=== PATIENT | male | born 1955 | race American Indian/Alaskan Native ===

== ENCOUNTER 2021-11-26 06:45 | Observation (INO) | payer MEDICARE, OTHER ==
[2021-11-20 10:41] LABS: Hematocrit 32.4 % (35.5-45.6); Hemoglobin 11.3 gm/dl (11.8-15.2); Mean Corpuscular HGB Conc 35 % (32-34); Mean Corpuscular Volume 82 fl (84-94); Platelet Count 310 K/mm3 (140-440); Red Blood Count 3.95 M/mm3 (3.65-5.03); Red Cell Distribution Width 16.1 % (13.2-15.2)
[2021-11-20 10:59] LABS: Alanine Aminotransferase 13 units/L (7-56); Albumin 4.3 g/dL (3.9-5); BUN/Creatinine Ratio 14; Blood Urea Nitrogen 11 mg/dL (9-20); Calcium 9.6 mg/dL (8.4-10.2); Hemolysis Index 2
--- NOTE | 2021-11-20 11:08 | Anesthesia Consultation ---
Anesthesia Consult and Med Hx Date of service: 11/26/21 - Airway Anesthetic Teeth Evaluation: Good (Missing) ROM Head & Neck: Adequate Mental/Hyoid Distance: Adequate Mallampati Class: Class III (Small mouth opening) Intubation Access Assessment: Possibly Difficult - Pre-Operative Health Status ASA Pre-Surgery Classification: ASA2 Proposed Anesthetic Plan: General - Pulmonary Hx Smoking: No Hx Asthma: No Hx Respiratory Symptoms: No (+2FS) COPD: No Hx Pneumonia: No Hx Sleep Apnea: No (MENDOZA PRE SCREEN HIGH RISK) - Cardiovascular System Hx Hypertension: Yes (X 10 YRS) - Central Nervous System Hx Psychiatric Problems: No - Gastrointestinal Hx Gastroesophageal Reflux Disease: No - Endocrine Hx Renal Disease: No Hx End Stage Renal Disease: No Hx Insulin Dependent Diabetes: No - Hematic Hx Anemia: Yes Hx Sickle Cell Disease: No (SC TRAIT ONLY) - Other Systems Hx Alcohol Use: Yes Hx Substance Use: No Hx Cancer: Yes (Prostate)
[~2021-11-26 06:45] MED LIST: ACETAMINOPHEN 325 MG TAB PO ONE; CELECOXIB 200 MG CAP PO NR; GABAPENTIN 300 MG CAP PO NR; LACTATED RINGERS 1,000 ML IV SCH; MAGNESIUM OXIDE 400 MG TAB PO ONE
--- NOTE | 2021-11-26 07:29 | Anesthesia Day of Surgery ---
Anesthesia Day of Surgery - Day of Surgery Patient Examined: Yes Patient H&P Reviewed: Yes Patient is NPO: Yes
[2021-11-26] MEDS ORDERED: rifAMPin 600 MG VIAL ONE ×2 (07:35→09:24)
[2021-11-26] MEDS ORDERED: SODIUM CHLORIDE P/F VIAL 10 ML 20 ML ONE (07:35)
[2021-11-26] MEDS ORDERED: GENTAMICIN 40 MG/ML VIAL 2 ML ONE ×2 (07:35→09:23)
[2021-11-26] MEDS ORDERED: BUPIVACAINE/PF (0.5%) 5 MG/1 ML 30 ML VIAL INFILTRATI ONE (07:35)
[2021-11-26] MEDS ORDERED: NEOMY 40 MG/POLYMYXIN B 200,000 UNITS/ML (GU) AMPULE IR ONE ×2 (07:36→10:24)
[2021-11-26] MEDS ORDERED: GENTAMICIN 40 MG/ML VIAL 2 ML IV SCH (07:45)
[2021-11-26] MEDS ORDERED: HYDROmorphone 1 MG/1 ML INJ ONE ×2 (07:58→10:03)
[2021-11-26] MEDS ORDERED: LIDOCAINE MPF (2%) 20 MG/1 ML VIAL 5 ML ONE (07:58)
[2021-11-26] MEDS ORDERED: propofoL 200 MG/20 ML VIAL IV ONE (07:58)
[2021-11-26] MEDS ORDERED: GENTAMICIN/NS 80 MG/100 ML 100 ML IV SCH (08:00)
[2021-11-26] MEDS ORDERED: ONDANSETRON 4 MG/2 ML INJ IV PRN ×2 (08:00→11:11)
[2021-11-26] MEDS ORDERED: VANCOMYCIN/NS 1 GM/250 ML 1 GM/250 ML BAG IV NR (08:00)
[2021-11-26] MEDS ORDERED: oxyCODONE /ACETAMINOPHEN 5-325MG TAB PO PRN (08:00)
[2021-11-26] MEDS ORDERED: SODIUM CHLORIDE 0.9% 0 ML ONE (08:16)
[2021-11-26] MEDS ORDERED: SODIUM CHLORIDE 0.9% 500 ML 500 ML ONE (08:16)
[2021-11-26] MEDS ORDERED: SODIUM CHLORIDE 0.9% 250ML 250 ML ONE (09:14)
[2021-11-26] MEDS ORDERED: SODIUM CHLORIDE 0.9% 100 ML ONE (10:15)
[2021-11-26] MEDS ORDERED: ONDANSETRON 4 MG/2 ML INJ ONE (10:16)
[2021-11-26] MEDS ORDERED: rifAMPin 600 MG VIAL IV ONE (10:22)
[2021-11-26] MEDS ORDERED: SODIUM CHLORIDE 0.9% 500 ML IVPB IRRIGATION ONE (10:23)
[2021-11-26] MEDS ORDERED: GENTAMICIN 40 MG/ML VIAL 2 ML IV ONE (10:23)
[2021-11-26] MEDS ORDERED: SODIUM CHLORIDE 0.9% 250 ML IVPB IV ONE (10:24)
[2021-11-26] MEDS ORDERED: SODIUM CHLORIDE 0.9% 100 ML IVPB IV ONE (10:24)
[2021-11-26] MEDS ORDERED: SODIUM CHLORIDE 0.9% IRR 1,500 ML BOTTLE IR ONE (10:24)
--- NOTE | 2021-11-26 11:10 | Short Stay Summary ---
Short Stay Documentation Date of service: 11/26/21 - History H&P: obtained from office - Allergies and Medications Current Medications: Allergies No Known Allergies Allergy (Verified 02/28/14 08:58) Home Medications Medication Instructions Recorded Confirmed Last Taken Type Amlodipine Besylate 10 mg PO DAILY 02/25/14 11/26/21 11/26/21 History Cholecalciferol (Vitamin D3) 2,000 unit PO QDAY 11/20/21 11/20/21 Unknown Histo ry [Vitamin D3 2,000 UNIT CAP] Fenofibrate 54 mg PO DAILY 11/20/21 11/20/21 Unknown History Active Medications Celecoxib (Celecoxib 200 Mg Cap) 200 mg PO PREOP NR Stop: 11/26/21 23:59 Last Admin: 11/26/21 08:15 Dose: 200 mg Gabapentin (Gabapentin 300 Mg Cap) 300 mg PO PREOP NR Stop: 11/26/21 23:59 Last Admin: 11/26/21 08:15 Dose: 300 mg Hydromorphone HCl (Hydromorphone 1 Mg/1 Ml Inj) 0.5 mg IV Q10MIN PRN PRN Reason: Pain , Severe (7-10) Stop: 11/26/21 17:00 Lactated Ringer's (Lactated Ringers) 1,000 mls @ 125 mls/hr IV DIRECT JAMIL Last Admin: 11/26/21 08:20 Dose: 125 mls/hr Vancomycin HCl (Vancomycin/Ns 1 Gm/250 Ml) 1 gm in 250 mls @ 167.007 mls/hr IV PREOP NR; Protocol Stop: 11/26/21 18:00 Gentamicin Sulfate/Sodium Chloride (Gentamicin/Ns 80 Mg/100 Ml) 100 mls @ 200 mls/hr IV PREOP JAMIL Stop: 11/26/21 18:00 Ondansetron HCl (Ondansetron 4 Mg/2 Ml Inj) 4 mg IV ONCE PRN PRN Reason: Nausea And Vomiting Stop: 11/26/21 17:00 Oxycodone/Acetaminophen (Oxycodone /Acetaminophen 5-325mg Tab) 1 tab PO ONCE PRN PRN Reason: Pain, Moderate (4-6) Stop: 11/26/21 17:00 - Brief post op/procedure progress note Date of procedure: 11/26/21 Pre-op diagnosis: malfx ipp Post-op diagnosis: same Procedure: replace ipp (coloplast) Anesthesia: NELDAA Surgeon: KIMMY HOLT Estimated blood loss: minimal Pathology: list (ipp) Specimen disposition: to lab Condition: stable - Hospital course Hospital course: pt has bactim & norco at home chan & wrap removed---dc home - Disposition Condition at discharge: Stable Short Stay Discharge Plan Follow up with: JOCE MANLEY MD [Primary Care Provider] - 7 Days
[2021-11-26] MEDS ORDERED: ZOLPIDEM 5 MG TAB PO PRN (11:11)
[2021-11-26] MEDS ORDERED: NALOXONE 0.4 MG/1 ML INJ IV PRN (11:11)
[2021-11-26] MEDS ORDERED: ACETAMINOPHEN 325 MG TAB PO PRN (11:11)
--- NOTE | 2021-11-26 11:18 | Consultation ---
History of Present Illness - Reason for Consult Consult date: 11/26/21 Medical Management Requesting physician: KIMMY BULLARD - History of Present Illness 66 YO Male with HTN, CaP S/P Surgical intervention. Consult placed by Dr. Bullard for medical management. Medications and Allergies Allergies Allergy/AdvReac Type Severity Reaction Status Date / Time No Known Allergies Allergy Verified 02/28/14 08:58 Home Medications Medication Instructions Recorded Confirmed Last Taken Type Amlodipine Besylate 10 mg PO DAILY 02/25/14 11/26/21 11/26/21 History Cholecalciferol (Vitamin D3) 2,000 unit PO QDAY 11/20/21 11/20/21 Unknown History [Vitamin D3 2,000 UNIT CAP] Fenofibrate 54 mg PO DAILY 11/20/21 11/20/21 Unknown History Active Meds: Active Medications Acetaminophen (Acetaminophen 325 Mg Tab) 650 mg PO Q4H PRN PRN Reason: Pain MILD(1-3)/Fever >100.5/JOSEPH Hydrocodone Bitart/Acetaminophen (Hydrocodone/Acetaminophen 5-325 Mg Tab) 2 ea ch PO Q6H PRN PRN Reason: Pain, Moderate (4-6) Amlodipine Besylate (Amlodipine 5 Mg Tab) 10 mg PO DAILY JAMIL Celecoxib (Celecoxib 200 Mg Cap) 200 mg PO PREOP NR Stop: 11/26/21 23:59 Last Admin: 11/26/21 08:15 Dose: 200 mg Gabapentin (Gabapentin 300 Mg Cap) 300 mg PO PREOP NR Stop: 11/26/21 23:59 Last Admin: 11/26/21 08:15 Dose: 300 mg Hydromorphone HCl (Hydromorphone 1 Mg/1 Ml Inj) 0.5 mg IV Q10MIN PRN PRN Reason: Pain , Severe (7-10) Stop: 11/26/21 17:00 Lactated Ringer's (Lactated Ringers) 1,000 mls @ 125 mls/hr IV DIRECT JAMIL Last Admin: 11/26/21 08:20 Dose: 125 mls/hr Vancomycin HCl (Vancomycin/Ns 1 Gm/250 Ml) 1 gm in 250 mls @ 167.007 mls/hr IV PREOP NR; Protocol Stop: 11/26/21 18:00 Gentamicin Sulfate/Sodium Chloride (Gentamicin/Ns 80 Mg/100 Ml) 100 mls @ 200 mls/hr IV PREOP JAMIL Stop: 11/26/21 18:00 Sodium Chloride (Nacl 0.45% 1000 Ml) 1,000 mls @ 100 mls/hr IV DIRECT JAMIL Morphine Sulfate (Morphine 4 Mg/1 Ml Inj) 4 mg IV Q4H PRN PRN Reason: Pain , Severe (7-10) Naloxone HCl (Naloxone 0.4 Mg/1 Ml Inj) 0.1 mg IV Q2MIN PRN PRN Reason: Res Rate </= 8 or 02 SAT < 92% Ondansetron HCl (Ondansetron 4 Mg/2 Ml Inj) 4 mg IV ONCE PRN PRN Reason: Nausea And Vomiting Stop: 11/26/21 17:00 Ondansetron HCl (Ondansetron 4 Mg/2 Ml Inj) 4 mg IV Q8H PRN PRN Reason: Nausea And Vomiting Oxycodone/Acetaminophen (Oxycodone /Acetaminophen 5-325mg Tab) 1 tab PO ONCE PRN PRN Reason: Pain, Moderate (4-6) Stop: 11/26/21 17:00 Sodium Chloride (Sodium Chloride 0.9% 10 Ml Flush Syringe) 10 ml IV BID JAMIL Sodium Chloride (Sodium Chloride 0.9% 10 Ml Flush Syringe) 10 ml IV PRN PRN PRN Reason: LINE FLUSH Zolpidem Tartrate (Zolpidem 5 Mg Tab) 5 mg PO QHS PRN PRN Reason: Insomnia Exam - Constitutional Vitals: Temp Pulse Resp BP Pulse Ox 99.1 F 74 18 104/74 100 11/26/21 08:15 11/26/21 08:15 11/26/21 08:44 11/26/21 08:15 11/26/21 08:15 Results - Labs CBC & Chem 7: 11/20/21 00:01 11/20/21 00:01
[2021-11-26] MEDS: HYDROmorphone 1 MG/1 ML INJ IV PRN ×2 (11:25→11:35)
--- NOTE | 2021-11-26 12:03 | Operative Report ---
DATE OF SURGERY: 11/26/2021 PREOPERATIVE DIAGNOSIS: Malfunctioning penile prosthesis (Coloplast). POSTOPERATIVE DIAGNOSIS: Malfunctioning penile prosthesis (Coloplast), leak. PROCEDURE: Replace inflatable penile prosthesis (Coloplast One Touch) a 24 cm with 3 cm rear tip extenders. SURGEON: Ben Bullard MD PLASTIC MAKER: Nicky Schmidt. ANESTHESIA: General. ESTIMATED BLOOD LOSS: Minimal. FLUIDS: Crystalloid. COMPLICATIONS: No complications. INDICATIONS: This patient is a 66-year-old gentleman known to our service since at least 2013. He underwent a Coloplast implant at that time, has done well. Recently, he was seen again for an elevated PSA. He was found to have prostate cancer and underwent recent radiation therapy at [facility]. He then re-presented to the office, pump not working, exam was consistent with a leak. He was cleared from his radiation therapist to proceed and he presents now for surgical intervention. DESCRIPTION OF PROCEDURE: The patient was taken to the operative suite, placed in the supine position. After adequate general anesthesia, he was prepped and draped in a sterile fashion. Again, attempts to pump him was consistent with a leak. A transscrotal incision was made with a Bovie. Sharp dissection was taken down to the pump. Pump was exposed. No signs of infection. The pump site was cultured for anaerobic and aerobic cultures, tracked the tubing to both cylinders, which corporotomies were made. Both cylinders removed. Again, anaerobic and aerobic cultures were obtained. No signs of infection. 2-0 Vicryl stay sutures were placed. Measurements revealed a total length of 27 cm. Therefore, a 24 cm One Touch device with 3 cm rear tip extenders were prepped. [place] was removed via the right external ring. No signs of infection. Again, copious irrigation was performed prior to placement of the new device, we changed our gloves. The 24 cm cylinders were prepped, placed in the corporal body with aid of a [place] needle. Corporotomies were closed with 2-0 Vicryl in a running fashion. [place] was placed in the right fossa again inflated to 120 mL. No back pressure. The pump was then placed in the dependent portion of the scrotum. The tubing was trimmed to allow connection of the both cylinders and the reservoir using the quick connection system. Internal insufflation revealed an excellent cosmetic appearance with his erection. It was partially deflated. The pump was secured in the dependent portion of the scrotum using purse-string suture of 2-0 Vicryl. [place] layer was closed with 2-0 Vicryl in a running fashion. Skin was closed with 3-0 Vicryl in interrupted fashion. Mummy wrap was placed. The patient tolerated the procedure well and was extubated and taken to recovery room. He will be observed overnight, go home on Bactrim and [place]. TID: [id number] RECEIPT: [id number] CHRIS/LA/JACOBY
[2021-11-26] MEDS: SODIUM CHLORIDE 0.45% 1000 ML 1,000 ML IV SCH ×2 (12:17→19:29)
[2021-11-26] MEDS: HYDROcodone/ACETAMINOPHEN 5-325 MG TAB PO PRN ×2 (13:40→19:00)
--- NOTE | 2021-11-26 13:49 | Post Anesthesia Evaluation ---
- Post Anesthesia Evaluation Patient Participated: Yes Airway Patent: Yes Stable Respiratory Function: Yes Nausea/Vomiting: No Temp > 96.8F: Yes Pain Manageable: Yes Adequeate Hydration: Yes Anesthesia Complications: No
[2021-11-26] MEDS: MORPHINE 4 MG/1 ML INJ IV PRN (15:39)
[2021-11-27] MEDS: MORPHINE 4 MG/1 ML INJ IV PRN (03:19)
[2021-11-27] MEDS: SODIUM CHLORIDE 0.45% 1000 ML 1,000 ML IV SCH (05:21)
[2021-11-27] MEDS: HYDROcodone/ACETAMINOPHEN 5-325 MG TAB PO PRN (08:31)
--- NOTE | 2021-11-27 08:57 | Progress Note ---
Assessment and Plan Assessment and plan: 66 YO Male with HTN, CaP S/P Surgical intervention. Consult placed by Dr. Bullard for medical management. Hypertension Prostate cancer History Interval history: No new issues overnight Hospitalist Physical - Constitutional Vitals: Temp Pulse Resp BP Pulse Ox 97.8 F 66 18 111/63 97 11/27/21 04:53 11/27/21 04:53 11/27/21 04:53 11/27/21 04:53 11/27/21 08:08 General appearance: Present: no acute distress, well-nourished - EENT Eyes: Present: PERRL, EOM intact ENT: hearing intact, clear oral mucosa, dentition normal - Neck Neck: Present: supple, normal ROM - Respiratory Respiratory effort: normal Respiratory: bilateral: CTA - Cardiovascular Rhythm: regular Heart Sounds: Present: S1 & S2. Absent: gallop, rub - Extremities Extremities: no ischemia, No edema, Full ROM - Abdominal General gastrointestinal: soft, non-tender, non-distended, normal bowel sounds - Integumentary Integumentary: Present: clear, warm, dry - Neurologic Neurologic: CNII-XII intact, moves all extremities Results - Labs CBC & Chem 7: 11/20/21 00:01 11/20/21 00:01 Labs: Laboratory Last Values WBC 5.1 K/mm3 (4.5-11.0) 11/20/21 00:01 RBC 3.95 M/mm3 (3.65-5.03) 11/20/21 00:01 Hgb 11.3 gm/dl (11.8-15.2) L 11/20/21 00:01 Hct 32.4 % (35.5-45.6) L 11/20/21 00:01 MCV 82 fl (84-94) L 11/20/21 00:01 MCH 29 pg (28-32) 11/20/21 00:01 MCHC 35 % (32-34) H 11/20/21 00:01 RDW 16.1 % (13.2-15.2) H 11/20/21 00:01 Plt Count 310 K/mm3 (140-440) 11/20/21 00:01 Sodium 140 mmol/L (137-145) 11/20/21 00:01 Potassium 3.6 mmol/L (3.6-5.0) 11/20/21 00:01 Chloride 102.9 mmol/L (98-107) 11/20/21 00:01 Carbon Dioxide 25 mmol/L (22-30) 11/20/21 00:01 Anion Gap 16 mmol/L 11/20/21 00:01 BUN 11 mg/dL (9-20) 11/20/21 00:01 Creatinine 0.8 mg/dL (0.8-1.3) 11/20/21 00:01 Estimated GFR > 60 ml/min 11/20/21 00:01 BUN/Creatinine Ratio 14 % 11/20/21 00:01 Glucose 98 mg/dL (75-100) 11/20/21 00:01 Calcium 9.6 mg/dL (8.4-10.2) 11/20/21 00:01 Total Bilirubin 0.40 mg/dL (0.1-1.2) 11/20/21 00:01 AST 18 units/L (5-40) 11/20/21 00:01 ALT 13 units/L (7-56) 11/20/21 00:01 Alkaline Phosphatase 36 units/L (35-129) 11/20/21 00:01 Total Protein 7.2 g/dL (6.3-8.2) 11/20/21 00:01 Albumin 4.3 g/dL (3.9-5) 11/20/21 00:01 Albumin/Globulin Ratio 1.5 % 11/20/21 00:01 SARS-CoV-2 (PCR) Negative (Negative) 11/20/21 09:50 Microbiology: Microbiology 11/26/21 Unknown Other (Please Specify:) - Penis Pump Surgical Culture - Preliminary 11/26/21 Unknown Other (Please Specify:) - Penis Pump Surgical Culture - Preliminary 11/26/21 Unknown Penis - Penis Pump Surgical Culture - Preliminary Rico/IV: Voiding Method Indwelling Catheter Active Medications - Current Medications Current Medications: Generic Name Dose Route Start Last Admin Trade Name Freq PRN Reason Stop Dose Admin Acetaminophen 650 mg 11/26/21 11:11 11/26/21 21:47 Acetaminophen 325 Mg Tab PO 650 mg Q4H PRN Administration Pain MILD(1-3)/Fever >100.5/JOSEPH Hydrocodone Bitart/Acetaminophen 2 each 11/26/21 11:11 11/27/21 08:31 Hydrocodone/Acetaminophen 5-325 Mg Tab PO 2 each Q6H PRN Administration Pain, Moderate (4-6) Amlodipine Besylate 10 mg 11/27/21 10:00 Amlodipine 5 Mg Tab PO DAILY JAMIL Lactated Ringer's 1,000 mls @ 125 mls/hr 11/26/21 06:00 11/26/21 08:20 Lactated Ringers IV 125 mls/hr DIRECT JAMIL Administration Sodium Chloride 1,000 mls @ 100 mls/hr 11/26/21 12:00 11/27/21 05:21 Nacl 0.45% 1000 Ml IV 100 mls/hr DIRECT JAMIL Administration Morphine Sulfate 4 mg 11/26/21 11:11 11/27/21 03:19 Morphine 4 Mg/1 Ml Inj IV 4 mg Q4H PRN Administration Pain , Severe (7-10) Naloxone HCl 0.1 mg 11/26/21 11:11 Naloxone 0.4 Mg/1 Ml Inj IV Q2MIN PRN Res Rate </= 8 or 02 SAT < 92% Ondansetron HCl 4 mg 11/26/21 11:11 Ondansetron 4 Mg/2 Ml Inj IV Q8H PRN Nausea And Vomiting Sodium Chloride 10 ml 11/26/21 22:00 11/26/21 21:48 Sodium Chloride 0.9% 10 Ml Flush Syringe IV 10 ml BID JAMIL Administration Sodium Chloride 10 ml 11/26/21 11:11 Sodium Chloride 0.9% 10 Ml Flush Syringe IV PRN PRN LINE FLUSH Zolpidem Tartrate 5 mg 11/26/21 11:11 Zolpidem 5 Mg Tab PO QHS PRN Insomnia
[2021-11-27] MEDS ORDERED: amLODIPine 5 MG TAB PO SCH (10:00)
[2021-11-27 11:30] VITALS: BP 130/76
--- NOTE | 2021-11-27 15:03 | Post Anesthesia Evaluation ---
- Post Anesthesia Evaluation Patient Participated: Yes Airway Patent: Yes Stable Respiratory Function: Yes Nausea/Vomiting: No Temp > 96.8F: Yes Pain Manageable: Yes Adequeate Hydration: Yes Anesthesia Complications: No Block Receding Appropriately: Not Applicable Patient on Ventilator: No Other Comments: patient is being discharged home
== END 2021-11-27 12:15 | disposition home or self-care (01) ==
LOC: OR 06:45 → EDSTATUS 09:30 → 3A 11:12
PROVIDERS: ADMIT Urology; ATTEND Urology
DX: T83.490A Other mechanical complication of implanted penile prosthesis, initial encounter (principal); Z20.822 Contact with and (suspected) exposure to COVID-19; N52.01 Erectile dysfunction due to arterial insufficiency; I10 Essential (primary) hypertension; J18.9 Pneumonia, unspecified organism; Z79.899 Other long term (current) drug therapy; Z98.890 Other specified postprocedural states
CPT/HCPCS: 36415; 54410; 80053; 85027; 87075; 87116; 88300; 96374; 96376; C1813; G0378; J1170; J1580; J2270; J2405; J2704; J3370; J3490; J7030; J7040; J7050; J7120; U0003; 88302